=== PATIENT | female | born 1980 | race Caucasian/White ===

== ENCOUNTER → 2017-04-16 | Outpatient (CLI) | payer BC ==
--- NOTE | ~2017-04-16 | US128 ---
[id number] [address] [address] [id number] O MR#: [id number] Acc #: [id number] NAME: MADDISON MALLOY : 1980 SEX: F STUDY DATE/TIME: 04/16/2017 11:01 UNIT: [facility]US ROOM: STUDY DESCRIPTION: Thyroid Attending Physician: Codi Kirkland M.D. Referring Physician: Codi Kirkland M.D. Ordering Physician: Codi Kirkland M.D. Primary Care Physician: Codi Kirkland M.D. MEDICAL IMAGING REPORT This report is preliminary unless electronic signature is present. EXAM Thyroid ultrasound 04/16/2017 HISTORY Enlarged thyroid for 2 weeks and on physical examination 04/05/2017. FINDINGS The right thyroid lobe measures 4.6 cm x 2 cm x 1.6 cm, while the left lobe measured 4.7 cm x 1.7 cm x 1.8 cm. The isthmus measures 5 mm in the AP direction. There is a solid nodule in the mid left thyroid lobe which measures 1.1 cm x 1.8 cm x 1.7 cm. Correlation with ultrasound-guided fine needle aspiration of the nodule is recommended to exclude neoplasm. The thyroid is otherwise homogeneous in echotexture. There are no masses extrinsic to the thyroid. Normal blood flow is seen throughout both thyroid lobes. IMPRESSION Solitary, solid 1.1-cm nodule in the mid left thyroid lobe. Correlation with ultrasound-guided fine needle aspiration of the nodule is recommended to exclude thyroid neoplasm. STAT * RESULT Dictated by... Rome Dodson M.D. THIS IS AN ELECTRONICALLY VERIFIED REPORT Rome Dodson M.D. at 04/17/2017 7:46 AM BRADEN/johnny TD: 04/16/2017 11:35 JOB #: [id number] MEDICAL IMAGING REPORT Page 1 of 1
== END | disposition home or self-care (01) ==
LOC: SGUS 10:50
DX: E01.0 Iodine-deficiency related diffuse (endemic) goiter (principal); E04.1 Nontoxic single thyroid nodule
CPT/HCPCS: 76536

== ENCOUNTER → 2017-04-19 | Outpatient (CLI) | payer BC ==
--- NOTE | ~2017-04-19 | XA230 ---
[facility] A Service of [facility] & [facility] RADIOLOGY TEXT RESULTS PATIENT: MADDISON MALLOY [facility] [birth year] UNIT #: [id number] AGE: [address]: Codi Kirkland MD SEX: F ORDER DR: [id number] [facility] [address] [place], [place] [address] [id number] O MR#: [id number] Acc #: [id number] NAME: MADDISON MALLOY : 1980 SEX: F STUDY DATE/TIME: 04/19/2017 8:41 UNIT: [facility] ROOM: STUDY DESCRIPTION: XA FNA Attending Physician: Codi Kirkland M.D. Ordering Physician: Codi Kirkland M.D. Primary Care Physician: Codi Kirkland M.D. MEDICAL IMAGING REPORT This report is preliminary unless electronic signature is present EXAM Thyroid needle aspiration 04/19/2017 HISTORY Thyroid nodule. PROCEDURE Informed consent was obtained from the patient. Solid lower pole nodule on the left measuring 9 x 6 x 12 mm was aspirated with 25-gauge needle. Initial cytopathologic evaluation suggested technically adequate specimen. IMPRESSION Technically successful needle aspiration solitary left thyroid lower pole solid nodule without complication. Dictated by... West Byers M.D. THIS IS AN ELECTRONICALLY VERIFIED REPORT West Byers M.D. at 05/02/2017 2:06 PM TEV/rnr TD: 05/01/2017 22:09 JOB #: [id number] MEDICAL IMAGING REPORT Page 1 of 1 COPY
== END | disposition home or self-care (01) ==
LOC: CIVR 08:15
DX: E04.1 Nontoxic single thyroid nodule (principal)
CPT/HCPCS: 76942; 88173; 88305